=== PATIENT | male | born 1940 | race Native Hawaiian/Other Pacific Islander ===

== ENCOUNTER 2021-09-28 20:24 | Emergency (ER) | payer OTHER ==
[~2021-09-28] VITALS: Ht 170.2 cm; Wt 108.0 kg
[2021-09-28 21:10] LABS: PLATELET COUNT 199 K/uL (142-355)
[2021-09-28 23:10] VITALS: BP 124/53; TEMP 98.8
[2021-09-28] MEDS ORDERED: CITALOPRAM40 M1 PO (23:27)
[2021-09-28] MEDS ORDERED: DITROPAN XL10 MG PO (23:28)
[2021-09-28] MEDS ORDERED: ASA LOW DOSE81 MG PO (23:29)
[2021-09-28] MEDS ORDERED: TYLENOL325 MG PO (23:30)
[2021-09-28] MEDS ORDERED: NAMENDA5 MG PO (23:31)
[2021-09-28] MEDS ORDERED: BUPR150T PO (23:32)
[2021-09-28] MEDS ORDERED: DONE5TAB PO (23:34)
[2021-09-28] MEDS ORDERED: PRAVACHOL20 MG PO (23:36)
[2021-09-28] MEDS ORDERED: QUETIAPINE50 MG PO (23:37)
[2021-09-28] MEDS ORDERED: WIXELA INHUB 251 AER INH (23:37)
[2021-09-28] MEDS ORDERED: ALBUTEROL0.083 % INH (23:39)
[2021-09-28] MEDS ORDERED: CEPHALEXIN500 MG PO (23:41)
== END 2021-09-28 23:10 | disposition other institution (70) ==
LOC: ED 20:24
PROVIDERS: Emergency Medicine
DX: F03.91 Unspecified dementia, unspecified severity, with behavioral disturbance (principal); Z11.52 Encounter for screening for COVID-19; Z04.6 Encounter for general psychiatric examination, requested by authority
CPT/HCPCS: 36415; 80053; 85027; 87635; 93005; 99283; U0003